=== PATIENT | female | born 1990 | race American Indian/Alaskan Native ===

== ENCOUNTER 2021-10-26 09:31 | Emergency (ER) | payer OTHER ==
[2021-10-26 11:16] VITALS: BP 101/54
[2021-10-26 12:53] LABS: Bilirubin,Urine NEG (Negative); Blood,Urine SM (Negative); Color,Urine Yellow (Yellow); Protein,Urine <15 mg/dL mg/dL (Negative); RBC,Urine < 1.0 /HPF (0.0-6.0); Urobilinogen,Urine < 2.0 mg/dL (<2.0); WBC,Urine < 1.0 /HPF (0.0-6.0)
--- NOTE | 2021-10-26 12:58 | Ultrasound Report ---
ULTRASOUND OBSTETRIC INDICATION: with vaginal bleeding. TECHNIQUE: Transabdominal. COMPARISON: None available. FINDINGS: GESTATIONAL SAC: Well-defined oval shape and intrauterine in location. YOLK SAC: No significant abnormality. EMBRYO/FETUS: No significant abnormality. - [place]-Rump Length = 1.19 cm = 7 weeks, 3 day(s). - Heart Rate = 161 beats per minute. ADNEXA: No significant abnormality. FREE FLUID: None. ADDITIONAL FINDINGS: 3 questionable areas of subchorionic hemorrhage are seen measuring up to 0.8 cm on image 11. IMPRESSION: 1. Single, living intrauterine with estimated sonographic age of 7 weeks, 3 day(s). 2. Multiple small areas of possible subchorionic hemorrhage as above. Signer Name: Osbaldo Potter MD Signed: 10/26/2021 12:54 PM Workstation Name: [id number]
[2021-10-26 13:04] LABS: Hematocrit 34.6 % (30.3-42.9); Hemoglobin 11.9 gm/dl (10.1-14.3); Mean Corpuscular HGB Conc 35 % (30-34); Mean Corpuscular Volume 87 fl (79-97); Platelet Count 257 K/mm3 (140-440); Red Blood Count 3.96 M/mm3 (3.65-5.03); Red Cell Distribution Width 13.8 % (13.2-15.2)
[2021-10-26 13:21] LABS: Alanine Aminotransferase 9 units/L (7-56); Albumin 4.7 g/dL (3.9-5); Blood Urea Nitrogen 5 mg/dL (7-17); Calcium 9.9 mg/dL (8.4-10.2); Hemolysis Index 3
[2021-10-26 13:24] LABS: BUN/Creatinine Ratio 10
--- NOTE | 2021-10-26 13:31 | Emergency Department Report ---
ED HPI - General Chief complaint: Vaginal Bleeding Stated complaint: 7 WKS PREG/BLOOD CLOTS Time Seen by Provider: 10/26/21 11:28 Source: patient Mode of arrival: Ambulatory Limitations: No Limitations - History of Present Illness Initial comments: 30-year-old black female with no past medical history who is at 7 weeks gestation presents to the emergency department for evaluation of vaginal bleeding. She states that when she went to the restroom this morning she noted blood dripping in the toilet and when she wiped she had blood on the tissue. She states that she has also has some minimal abdominal cramping. She denies dysuria, fever, vaginal discharge, and back pain. She states that she has not had her first OB appointment yet and is scheduled to see them in the next 2 weeks. MD Complaint: abdominal pain, vaginal bleeding -: Sudden, This morning Location: abdomen Radiation: none Severity: mild Severity scale (0 -10): 2 Quality: cramping Consistency: intermittent Associated symptoms: vaginal bleeding, abdominal pain. denies: nausea/vomiting, vaginal discharge, dysuria, headache, vision changes, malaise, dysparuenia, rash, seizure, shortness of breath, syncope, weakness Vaginal bleeding: light :: Yes Number of weeks : 7 OB History - Current : no complications - Related Data : 1 Para: 0 Home Medications Medication Instructions Recorded Confirmed Last Taken No Known Home Medications [No 10/26/21 10/26/21 Unknown Reported Home Medications] Allergies Allergy/AdvReac Type Severity Reaction Status Date / Time No Known Allergies Allergy Unverified 10/26/21 11:16 ED Review of Systems ROS: Stated complaint: 7 WKS PREG/BLOOD CLOTS Other details as noted in HPI Comment: All other systems reviewed and negative Constitutional: denies: chills, fever Respiratory: denies: cough, shortness of breath, SOB with exertion, SOB at rest Cardiovascular: denies: chest pain, palpitations, dyspnea on exertion, o rthopnea, edema, syncope, paroxysmal nocturnal dyspnea Gastrointestinal: abdominal pain. denies: nausea, vomiting, diarrhea, hematemesis, melena, hematochezia Genitourinary: denies: urgency, dysuria, frequency, discharge Musculoskeletal: denies: back pain Skin: denies: rash, lesions Neurological: denies: headache, weakness ED Past Medical Hx - Past Medical History Previous Medical History?: No - Surgical History Past Surgical History?: No - Medications Home Medications: Home Medications Medication Instructions Recorded Confirmed Last Taken Type No Known Home Medications [No 10/26/21 10/26/21 Unknown History Reported Home Medications] ED Physical Exam - General Limitations: No Limitations General appearance: alert, in no apparent distress - Head Head exam: Present: atraumatic, normocephalic - Eye Eye exam: Present: normal appearance. Absent: conjunctival injection - Neck Neck exam: Present: normal inspection, full ROM. Absent: tenderness, meningismus, lymphadenopathy - Respiratory Respiratory exam: Present: normal lung sounds bilaterally. Absent: respiratory distress, wheezes, rales, rhonchi, stridor, chest wall tenderness - Cardiovascular Cardiovascular Exam: Present: regular rate, normal heart sounds - GI/Abdominal GI/Abdominal exam: Present: soft, normal bowel sounds. Absent: distended, tenderness, guarding, rebound, rigid - Extremities Exam Extremities exam: Present: normal inspection, normal capillary refill. Absent: full ROM, tenderness, pedal edema, joint swelling, calf tenderness - Back Exam Back exam: Absent: CVA tenderness (R), CVA tenderness (L), vertebral tenderness - Neurological Exam Neurological exam: Present: alert, oriented X3, normal gait - Psychiatric Psychiatric exam: Present: normal affect, normal mood - Skin Skin exam: Present: warm, dry, intact, normal color ED Course Vital Signs 10/26/21 11:11 Temperature 98.4 F Pulse Rate 69 Respiratory 18 Rate Blood Pressure 101/54 O2 Sat by Pulse 100 Oximetry ED Medical Decision Making - Lab Data Result diagrams: 10/26/21 12:10 10/26/21 12:10 - Radiology Data Radiology results: report reviewed ultrasound: FINDINGS: GESTATIONAL SAC: Well-defined oval shape and intrauterine in location. YOLK SAC: No significant abnormality. EMBRYO/FETUS: No significant abnormality. - [place]-Rump Length = 1.19 cm = 7 weeks, 3 day(s). - Heart Rate = 161 beats per minute. ADNEXA: No significant abnormality. FREE FLUID: None. ADDITIONAL FINDINGS: 3 questionable areas of subchorionic hemorrhage are seen measuring up to 0.8 cm on image 11. IMPRESSION: 1. Single, living intrauterine with estimated sonographic age of 7 weeks, 3 day(s). 2. Multiple small areas of possible subchorionic hemorrhage as above. - Medical Decision Making 30-year-old black female with no past medical history who is at 7 weeks gestation presents to the emergency department for evaluation of vaginal bleeding. She states that when she went to the restroom this morning she noted blood dripping in the toilet and when she wiped she had blood on the tissue. She states that she has also has some minimal abdominal cramping. She denies dysuria, fever, vaginal discharge, and back pain. She states that she has not had her first OB appointment yet and is scheduled to see them in the next 2 weeks. No gross abnormalities noted on exam and labs. Urine negative for urinary tract infection. ultrasound positive for IUP at 7 weeks 3 days with multiple small areas of possible subchorionic hemorrhage. Patient will be discharged home to follow-up with [facility] as planned. She is advised to return to the emergency department for any concerning symptoms. She verbalizes understanding of and agreement with plan of care. Critical care attestation.: If time is entered above; I have spent that time in minutes in the direct care of this critically ill patient, excluding procedure time. ED Disposition Clinical Impression: Vaginal bleeding during Subchorionic hemorrhage Qualifiers: Fetus number: single or unspecified fetus Trimester: first trimester Qualified Code(s): O41.8X10 - Other specified disorders of amniotic fluid and membranes, first trimester, not applicable or unspecified Disposition: 01 HOME / SELF CARE / HOMELESS Is pt being admited?: No Does the pt Need Aspirin: No Condition: Stable Instructions: Vaginal Bleeding During , First Trimester, Subchorionic Hematoma Additional Instructions: Follow-up with [facility] as planned. Return to the emergency department for any concerning symptoms. Referrals: TOM LOWE MD [Primary Care Provider] - 3-5 Days Forms: Work/School Release Form(ED) Time of Disposition: 13:33
== END 2021-10-26 15:01 | disposition home or self-care (01) ==
LOC: ED 09:31
DX: O46.91 Antepartum hemorrhage, unspecified, first trimester (principal); O41.8X10 Other specified disorders of amniotic fluid and membranes, first trimester, not applicable or unspecified; Z3A.01 Less than 8 weeks gestation of pregnancy
CPT/HCPCS: 36415; 76801; 80053; 81001; 84702; 85027; 99284